=== PATIENT | male | born 1960 | race African-American/Black ===

== ENCOUNTER 2019-05-13 13:25 | Emergency (ER) | payer SELFPAY ==
[~2019-05-13] VITALS: Ht 180.3 cm; Wt 99.8 kg
[2019-05-13 13:48] VITALS: BP 150/91
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
[2019-05-13] MEDS ORDERED: CYCL10TA2 PO (14:59)
[2019-05-13] MEDS ORDERED: NAPR-683 PO (14:59)
== END 2019-05-13 15:20 | disposition home or self-care (01) ==
LOC: ER 13:25
DX: S16.1XXA Strain of muscle, fascia and tendon at neck level, initial encounter (principal); S39.012A Strain of muscle, fascia and tendon of lower back, initial encounter; V49.9XXA Car occupant (driver) (passenger) injured in unspecified traffic accident, initial encounter; Y93.89 Activity, other specified; Y92.488 Other paved roadways as the place of occurrence of the external cause; Y99.8 Other external cause status
CPT/HCPCS: 72040; 72100; 99284